=== PATIENT | female | born 1965 | race Two or more races ===

== ENCOUNTER 2019-07-05 17:58 | Emergency (ER) | payer MEDICAID, OTHER ==
--- NOTE | 2019-07-05 18:41 | EDM.PDOC ---
ED HPI GENERAL MEDICAL PROBLEM - General Chief Complaint: Upper Extremity Injury/Pain Stated Complaint: L SHOULDER Time Seen by Provider: 07/05/19 18:25 Source of Information: Reports: Patient History Limitations: Reports: No Limitations - History of Present Illness INITIAL COMMENTS - FREE TEXT/NARRATIVE: states she slipped and fell as she was at work on stairs tried to catch herself and felt sudden pop in the left shoulder pain is on the upper pole of the shoulder and radiates to the lateral upper arm has no numbness or tingling in the fingers states she has arthritis in almost all her joints had applied a topical cream to the left shoulder 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 07/05/19 [Rx] Losartan Potassium [Cozaar] 5 mg PO DAILY 07/05/19 [History] Prazosin HCl [Prazosin] 1 mg PO BEDTIME 07/05/19 [History] risperiDONE 1 mg PO BEDTIME 07/05/19 [History] Review of Systems - Review of Systems Review Of Systems: Comprehensive ROS is negative, except as noted in HPI. Musculoskeletal: Reports: Shoulder Pain (left sided) ED EXAM, GENERAL - Physical Exam Exam: See Below Exam Limited By: No Limitations General Appearance: Alert, WD/WN, No Apparent Distress Eye Exam: Bilateral Eye: EOMI Ears: Normal External Exam Nose: Normal Inspection Throat/Mouth: Normal Oropharynx Head: Atraumatic Neck: Supple, Non-Tender Respiratory/Chest: No Respiratory Distress Extremities: Arm Pain, Limited Range of Motion (limited abduction , localized pain in the upper outer shoulder) Neurological: Alert, Oriented, CN II-XII Intact Course - Vital Signs Last Recorded V/S: Last Vital Signs Temp 36.7 C 07/05/19 18:15 Pulse 55 L 07/05/19 18:15 Resp 17 07/05/19 18:15 BP 152/81 H 07/05/19 18:15 Pulse Ox 98 07/05/19 18:15 - Orders/Labs/Meds Orders: Active Orders 24 hr Category Date Time Status Shoulder Comp Lt [CR] Stat Exams 07/05/19 18:49 Taken - Re-Assessments/Exams Free Text/Narrative Re-Assessment/Exam: 07/05/19 18:46 remained stable Departure - Departure Time of Disposition: 19:30 Disposition: Home, Self-Care 01 Condition: Fair Clinical Impression: Left shoulder strain, Left shoulder tendinitis - Discharge Information *PRESCRIPTION DRUG MONITORING PROGRAM REVIEWED*: Not Applicable *COPY OF PRESCRIPTION DRUG MONITORING REPORT IN PATIENT DANIELA: Not Applicable Prescriptions: Diclofenac Sodium 1 gm TP BID #100 gel..gram. Forms: ED Department Discharge Sepsis Event Note - Evaluation Sepsis Screening Result: No Definite Risk - Focused Exam Vital Signs: Vital Signs Temp Pulse Resp BP Pulse Ox 07/05/19 18:15 36.7 C 55 L 17 152/81 H 98 Date Exam was Performed: 07/05/19 Time Exam was Performed: 19:25 - My Orders Last 24 Hours: My Active Orders 07/05/19 18:49 Shoulder Comp Lt [CR] Stat - Assessment/Plan Last 24 Hours: My Active Orders 07/05/19 18:49 Shoulder Comp Lt [CR] Stat
--- NOTE | 2019-07-07 10:09 | CR ---
INDICATION: Left shoulder strain. LEFT SHOULDER: Five images of the left shoulder in four projections revealed minimal degenerative changes at the AC joint. A fracture, dislocation or other significant appearing bone or joint abnormality , was not identified. Adjacent ribs and lung were unremarkable. IMPRESSION: Minimal degenerative changes AC joint. MTDD
== END 2019-07-05 19:46 | disposition home or self-care (01) ==
LOC: FB.ED 17:58
DX: S46.912A Strain of unspecified muscle, fascia and tendon at shoulder and upper arm level, left arm, initial encounter (principal); Z88.5 Allergy status to narcotic agent; Z79.899 Other long term (current) drug therapy; W10.9XXA Fall (on) (from) unspecified stairs and steps, initial encounter; Y99.0 Civilian activity done for income or pay
CPT/HCPCS: 73030-LT; 99283-25

== ENCOUNTER 2019-08-31 18:12 | Emergency (ER) | payer MEDICAID, OTHER ==
[2019-08-31] MEDS ORDERED: hydrOXYzine HCl 25 MG Tab PO ONE (18:13)
[2019-08-31] MEDS ORDERED: LORazepam 2 MG/ML SDV IM ONE (18:26)
--- NOTE | 2019-08-31 18:43 | EDM.PDOCBH ---
ED HPI GENERAL MEDICAL PROBLEM - General Stated Complaint: AXNITEY Time Seen by Provider: 08/31/19 18:30 Source of Information: Reports: Patient, Old Records History Limitations: Reports: No Limitations - History of Present Illness INITIAL COMMENTS - FREE TEXT/NARRATIVE: Lisa comes in complaining of anxiety. She feels scared,anxious and unable to sleep. She did drink last night,but does not think it is connected. She has a long standing mental illness history that includes PTSD,Psychosis,MDD and substance abuse disorder.Occasionally drinks alcohol. She denies any chest pain, or systemic symptoms. - Related Data Allergies Allergy/AdvReac Type Severity Reaction Status Date / Time codeine Allergy Rash Verified 07/05/19 18:13 Home Meds: Home Meds Diclofenac Sodium 1 gm TP BID #100 gel..gram. 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 Social & Family History - Family History Family Medical History: Noncontributory - Caffeine Use Caffeine Use: Reports: Coffee, Soda ED ROS GENERAL - Review of Systems Review Of Systems: Comprehensive ROS is negative, except as noted in HPI. ED EXAM, BEHAVIORAL HEALTH - Physical Exam Exam: See Below Exam Limited By: No Limitations General Appearance: WD/WN, Anxious Nose: Normal Inspection Head: Atraumatic Neck: Normal Inspection Respiratory/Chest: No Respiratory Distress Extremities: Normal Inspection Neurological: Alert, CN II-XII Intact, Normal Cognition, Oriented x 3 Psychiatric: Alert, Restless, Tearful, Paranoid Thoughts. No: Homicidal Thoughts, Suicidal Plan, Suicidal Thoughts, Pressured Speech Skin Exam: Warm, Dry COURSE, BEHAVIORAL HEALTH COMP - Course Orders, Labs, Meds: Active Orders 24 hr Category Date Time Status COMPREHENSIVE METABOLIC PN,CMP [CHEM] Stat Lab 08/31/19 19:00 Results ETHANOL BLOOD MEDICAL [CHEM] Stat Lab 08/31/19 19:00 Received TROPONIN I [CHEM] Stat Lab 08/31/19 19:00 Received Laboratory Tests 08/31/19 08/31/19 08/31/19 Range/Units 19:00 19:00 19:01 WBC 9.9 (4.5-12.0) X10-3/uL RBC 4.47 (3.23-5.20) x10(6)uL Hgb 14.8 (11.5-15.5) g/dL Hct 42.6 (30.0-51.3) % MCV 95.2 (80-96) fL MCH 33.0 (27.7-33.6) pg MCHC 34.6 (32.2-35.4) g/dL RDW 12.5 (11.5-15.5) % Plt Count 368 (125-369) X10(3)uL MPV 8.1 (7.4-10.4) fL Neut % (Auto) 46.5 (46-82) % Lymph % (Auto) 43.1 H (13-37) % [place] % (Auto) 9.1 (4-12) % Eos % (Auto) 1 (1.0-5.0) % Baso % (Auto) 1 (0-2) % Neut # (Auto) 4.6 (1.6-8.3) # Lymph # (Auto) 4.3 (0.6-5.0) # [place] # (Auto) 0.9 (0.0-1.3) # Eos # (Auto) 0.1 (0.0-0.8) # Baso # (Auto) 0.0 (0.0-0.2) # Sodium 141 (135-145) mmol/L Potassium 4.0 (3.5-5.3) mmol/L Chloride 102 (100-110) mmol/L Carbon Dioxide 29 (21-32) mmol/L BUN 12 (7-18) mg/dL Creatinine 0.8 (0.55-1.02) mg/dL Est Cr Clr Drug Dosing TNP Estimated GFR (MDRD) > 60 (>60) BUN/Creatinine Ratio 15.0 (9-20) Glucose 92 (80-116) mg/dL Calcium 9.5 (8.6-10.2) mg/dL Urine Opiates Screen Negative (NEGATIVE) Ur Oxycodone Screen Negative (NEGATIVE) Ur Propoxyphene Screen Negative (NEGATIVE) Ur Barbituates Screen Negative (NEGATIVE) Ur Tricyclics Screen Negative (NEGATIVE) Ur Phencyclidine Scrn Negative (NEGATIVE) Ur Amphetamine Screen Negative (NEGATIVE) Urine MDMA Screen Negative (NEGATIVE) U Benzodiazepines Scrn Negative (NEGATIVE) U Cocaine Metab Screen Negative (NEGATIVE) U Marijuana (THC) Screen Negative (NEGATIVE) Medications Discontinued Medications Generic Name Dose Route Start Last Admin Trade Name Ijeoma PRN Reason Stop Dose Admin Lorazepam 1 mg 08/31/19 18:26 08/31/19 18:49 Ativan IM 08/31/19 18:27 1 mg ONETIME ONE Administration Departure - Departure Time of Disposition: 19:30 Disposition: Home, Self-Care 01 Condition: Good Clinical Impression: Anxiety - Discharge Information Referrals: PCP,None [Ordering Only Provider] - Sepsis Event Note - Focused Exam Date Exam was Performed: 08/31/19 Time Exam was Performed: 19:30 - Problem List & Annotations (1) Anxiety SNOMED Code(s): 05015344 Code(s): F41.9 - ANXIETY DISORDER, UNSPECIFIED Status: Acute Current Visit: No - Problem List Review Problem List Initiated/Reviewed/Updated: Yes - My Orders Last 24 Hours: My Active Orders 08/31/19 19:00 COMPREHENSIVE METABOLIC PN,CMP [CHEM] Stat ETHANOL BLOOD MEDICAL [CHEM] Stat TROPONIN I [CHEM] Stat - Assessment/Plan Last 24 Hours: My Active Orders 08/31/19 19:00 COMPREHENSIVE METABOLIC PN,CMP [CHEM] Stat ETHANOL BLOOD MEDICAL [CHEM] Stat TROPONIN I [CHEM] Stat Plan: She improved on IM Lorazepam.Send home on Oral Vistaril. Return PRN,see PCP on Sunday
== END 2019-08-31 19:38 | disposition home or self-care (01) ==
LOC: FB.ED 18:12
DX: F41.9 Anxiety disorder, unspecified (principal); I10 Essential (primary) hypertension; M19.90 Unspecified osteoarthritis, unspecified site; F32.9 Major depressive disorder, single episode, unspecified; Z88.5 Allergy status to narcotic agent; Z79.899 Other long term (current) drug therapy
CPT/HCPCS: 36415; 80053; 80305; 80307; 84484; 85025; 96372; 99283; A9270; J2060